=== PATIENT | female | born 1990 | race Caucasian/White ===

== ENCOUNTER 2019-03-22 05:54 | Inpatient (IN) ==
[2019-03-22] MEDS: LACTATED RINGERS 1,000 ML IV SCH ×3 (06:59→23:56)
[2019-03-22] MEDS ORDERED: AMPICILLIN INJ 2,000 MG in SODIUM CHLORIDE 0.9% 100 ML IV SCH (07:00)
[2019-03-22 07:10] LABS: Basophils % 0.2 % (0.0-0.8); Eosinophils # 0.1 10*3/uL (0.0-0.87); Hematocrit 34.4 VOL% (35.7-47.0); Hemoglobin 10.9 GM/DL (12.0-16.0); Immature Granulocytes % 0.4 %; Immature Granulocytes Absolute 0.05 #; Lymphocytes # 3.2 10*3/uL (1.4-4.0); Lymphocytes % 26.4 % (21.3-54.2); Mean Corpuscular HGB Conc 31.7 GM/DL (32-36); Mean Corpuscular Volume 84.9 FL (87-102); Mean Platelet Volume 12.6 FL (9.6-12.0); Monocytes % 3.6 % (1.7-12.7); Neutrophils % 68.4 % (38.7-73.9); Platelet Count 257 T/CUMM (130-400); Red Blood Count 4.05 MC/CUMM (3.8-5.5); Red Cell Distribution Width 14.3 % (9.3-17.3); White Blood Count 12.2 T/CUMM (4-12)
[2019-03-22 07:28] LABS: Alanine Aminotransferase 16 U/L (13-56); Albumin 2.5 G/DL (3.4-5.0); Alkaline Phosphatase 130 U/L (45-117); Aspartate Amino Transferase 18 U/L (0-37); Bilirubin,Total < 0.39 MG/DL (0.2-1.0); Blood Urea Nitrogen 13 MG/DL (7-18); Calcium 9.5 MG/DL (8.5-10.1); Glucose 121 MG/DL (74-106); Osmolality,Calculated 273.8 MOS/KG (273-304); Total Protein 6.8 G/DL (6.4-8.3)
[2019-03-22] MEDS ORDERED: OXYTOCIN/LR 20 UNIT/1,000 ML BAG IV SCH (07:30)
[2019-03-22] MEDS: OXYTOCIN/LR 20 UNIT/1,000 ML BAG IV SCH (07:34)
[2019-03-22] MEDS ORDERED: AMPICILLIN INJ 2,000 MG in SODIUM CHLORIDE 0.9% 100 ML IV ONE (08:41)
[2019-03-22] MEDS: ONDANSETRON 4 MG/2 ML VIAL IV PRN ×2 (12:13→16:14)
[2019-03-22] MEDS: BUTORPHANOL 2 MG/ML VIAL IV PRN ×3 (12:15→21:05)
[2019-03-22] MEDS: AMPICILLIN INJ 1,000 MG in SODIUM CHLORIDE 0.9% 100 ML IV SCH ×3 (12:29→20:49)
[2019-03-22] MEDS ORDERED: LACTATED RINGERS 1,000 ML IV ONE (17:41)
[2019-03-22] MEDS ORDERED: CITRIC ACID/SODIUM CITRATE 30 ML UDCUP PO ONE (17:41)
[2019-03-22] MEDS ORDERED: FAMOTIDINE 20 MG/2 ML VIAL IV ONE (17:41)
[2019-03-22] MEDS ORDERED: diphenhydrAMINE 50 MG/1 ML VIAL IV PRN ×2 (17:41)
[2019-03-22] MEDS ORDERED: NALOXONE 0.4 MG/ML VIAL IV PRN (17:41)
[2019-03-22] MEDS ORDERED: ePHEDrine 50 MG/ML AMP IV PRN (17:41)
[2019-03-22] MEDS ORDERED: PROMETHAZINE 25 MG/1 ML VIAL IM ONE (17:41)
[2019-03-22] MEDS ORDERED: fentaNYL 2 MCG/ROPIV 0.2% EPID 100 ML EPIDURAL SCH (18:00)
[2019-03-22] MEDS ORDERED: LACTATED RINGERS 1,000 ML IV SCH ×2 (18:00)
[2019-03-23] MEDS: ONDANSETRON 4 MG/2 ML VIAL IV PRN ×3 (00:17→18:07)
[2019-03-23] MEDS: AMPICILLIN INJ 1,000 MG in SODIUM CHLORIDE 0.9% 100 ML IV SCH ×2 (00:17→04:30)
[2019-03-23] MEDS: BUTORPHANOL 2 MG/ML VIAL IV PRN ×2 (00:18→04:10)
[2019-03-23] MEDS ORDERED: FAMOTIDINE 20 MG/2 ML VIAL IV ONE (06:16)
[2019-03-23] MEDS ORDERED: CITRIC ACID/SODIUM CITRATE 30 ML UDCUP PO ONE (06:16)
[2019-03-23] MEDS ORDERED: fentaNYL 100 MCG/2 ML VIAL ONE (06:51)
[2019-03-23] MEDS ORDERED: MORPHINE 10 MG/10 ML VIAL ONE (06:51)
[2019-03-23] MEDS ORDERED: BUPIVACAINE SPINAL 0.75% 2 ML AMP SPINAL ONE (06:52)
[2019-03-23] MEDS ORDERED: EPINEPHrine 1 MG/ML VIAL ONE (06:57)
[2019-03-23] MEDS ORDERED: BUPIVACAINE 0.5% 50 ML VIAL ONE (06:57)
[2019-03-23] MEDS ORDERED: ceFAZolin 3,000 MG in SYRINGE 1 EACH IV ONE (07:00)
[2019-03-23] MEDS ORDERED: miSOPROStol 200 MCG TABLET ONE (07:05)
[2019-03-23] MEDS ORDERED: CARBOPROST TROMETHAMINE 250 MCG/ML AMP IM ONE ×2 (07:05→08:00)
[2019-03-23] MEDS ORDERED: METHYLERGONOVINE 0.2 MG/1 ML AMP ONE ×2 (07:05→08:05)
[2019-03-23] MEDS ORDERED: TRANEXAMIC ACID 1,000 MG/10 ML VIAL ONE (07:07)
[2019-03-23] MEDS ORDERED: OXYTOCIN/LR 20 UNIT/1,000 ML BAG IV ONE (08:33)
[2019-03-23] MEDS ORDERED: ONDANSETRON 4 MG/2 ML VIAL IV PRN ×2 (08:33→21:30)
[2019-03-23] MEDS ORDERED: ACETAMINOPHEN 325 MG TABLET PO PRN (08:33)
[2019-03-23] MEDS ORDERED: RHO(D) IMMUNE GLOBULIN 300 MCG SYRINGE IM ONE (08:33)
[2019-03-23] MEDS ORDERED: ceFAZolin 1,000 MG in SYRINGE 1 EACH IV SCH (09:00)
[2019-03-23] MEDS ORDERED: LACTATED RINGERS 1,000 ML IV SCH (09:00)
[2019-03-23 09:30] LABS: Apearance,Urine CLEAR (Clear); Bacteria,Urine Occasional /HPF (Few); Bilirubin,Urine Negative (Negative); Blood, Urine Small mg/dL (Negative); Glucose,Urine (UA) Negative (Negative); Ketones,Urine 20 mg/dL (Negative); Nitrite,Urine Negative (Negative); Protein,Urine Negative; RBC,Urine <1 /HPF (0-4); Squamous Epithelial Cell,Urine Occasional /HPF (0-10); Urine Color Yellow (Yellow); Urine Specific Gravity 1.008 (1.001-1.035); Urine Urobilinogen < 2.0 EU/DL (0.2-1.0); WBC,Urine 1 /HPF (0-6)
[2019-03-23] MEDS ORDERED: HYDROmorphone 2 MG/1 ML VIAL IV PRN (10:36)
[2019-03-23] MEDS ORDERED: hydrOXYzine HCL 25 MG/1 ML VIAL IM PRN (10:36)
[2019-03-23] MEDS: OXYTOCIN/LR 20 UNIT/1,000 ML BAG IV SCH (10:42)
[2019-03-23] MEDS ORDERED: SODIUM CHLORIDE 0.9% 100 ML IV ONE (10:52)
[2019-03-23] MEDS: MEPERIDINE 50 MG/1 ML VIAL IV PRN ×3 (12:59→22:25)
[2019-03-23] MEDS: DOCUSATE SODIUM 100 MG CAPSULE PO SCH ×2 (14:20→20:15)
[2019-03-23] MEDS: MULTIVITAMIN (PRENATAL) TABLET PO SCH (14:20)
[2019-03-23] MEDS ORDERED: SODIUM CHLORIDE 0.9% 50 ML IV ONE (15:46)
[2019-03-23] MEDS: ceFAZolin 1,000 MG in SYRINGE 1 EACH IV SCH (15:52)
[2019-03-23] MEDS: LABETALOL 200 MG TABLET PO SCH (20:09)
[2019-03-23 21:56] LABS: Basophils % 0.3 % (0.0-0.8); Eosinophils % 0.3 % (0.00-10.9); Hematocrit 31.9 VOL% (35.7-47.0); Immature Granulocytes % 0.7 %; Immature Granulocytes Absolute 0.08 #; Lymphocytes # 1.8 10*3/uL (1.4-4.0); Lymphocytes % 16.4 % (21.3-54.2); Mean Corpuscular HGB Conc 31.3 GM/DL (32-36); Mean Corpuscular Volume 84.4 FL (87-102); Mean Platelet Volume 12.9 FL (9.6-12.0); Monocytes % 3.7 % (1.7-12.7); Neutrophils % 78.6 % (38.7-73.9); Platelet Count 214 T/CUMM (130-400); Red Blood Count 3.78 MC/CUMM (3.8-5.5); Red Cell Distribution Width 14.4 % (9.3-17.3); White Blood Count 11.2 T/CUMM (4-12)
[2019-03-24] MEDS: ceFAZolin 1,000 MG in SYRINGE 1 EACH IV SCH (01:25)
[2019-03-24] MEDS: IBUPROFEN 800 MG TABLET PO PRN ×3 (02:07→20:49)
[2019-03-24 06:00] LABS: Basophils % 0.2 % (0.0-0.8); Eosinophils # 0.1 10*3/uL (0.0-0.87); Eosinophils % 0.6 % (0.00-10.9); Hematocrit 29.1 VOL% (35.7-47.0); Immature Granulocytes % 0.4 %; Immature Granulocytes Absolute 0.04 #; Lymphocytes # 2.5 10*3/uL (1.4-4.0); Lymphocytes % 25.5 % (21.3-54.2); Mean Corpuscular HGB Conc 30.9 GM/DL (32-36); Mean Corpuscular Volume 85.6 FL (87-102); Mean Platelet Volume 12.3 FL (9.6-12.0); Monocytes % 4.5 % (1.7-12.7); Neutrophils % 68.8 % (38.7-73.9); Platelet Count 201 T/CUMM (130-400); Red Cell Distribution Width 14.5 % (9.3-17.3); White Blood Count 9.6 T/CUMM (4-12)
[2019-03-24] MEDS: LEVOTHYROXINE 50 MCG TABLET PO SCH (06:19)
[2019-03-24] MEDS ORDERED: SERTRALINE 50 MG TABLET PO SCH (09:00)
[2019-03-24] MEDS: MULTIVITAMIN (PRENATAL) TABLET PO SCH (09:41)
[2019-03-24] MEDS: LABETALOL 200 MG TABLET PO SCH ×2 (09:41→21:37)
[2019-03-24] MEDS: SERTRALINE 50 MG TABLET PO SCH (09:42)
[2019-03-24] MEDS: DOCUSATE SODIUM 100 MG CAPSULE PO SCH ×2 (09:42→21:37)
[2019-03-25] MEDS: LEVOTHYROXINE 50 MCG TABLET PO SCH (07:59)
[2019-03-25] MEDS: SERTRALINE 50 MG TABLET PO SCH (08:00)
[2019-03-25] MEDS: MULTIVITAMIN (PRENATAL) TABLET PO SCH (08:00)
[2019-03-25] MEDS: DOCUSATE SODIUM 100 MG CAPSULE PO SCH ×2 (08:00→21:14)
[2019-03-25] MEDS: LABETALOL 200 MG TABLET PO SCH ×2 (08:00→21:15)
[2019-03-25] MEDS: IBUPROFEN 800 MG TABLET PO PRN (11:50)
[2019-03-25] MEDS: SIMETHICONE CHEW 80 MG TABLET PO PRN (16:26)
[2019-03-25] MEDS: MAGNESIUM HYDROXIDE SUSP 30 ML UDCUP PO PRN (21:14)
[2019-03-26] MEDS: IBUPROFEN 800 MG TABLET PO PRN ×2 (04:20→16:24)
[2019-03-26] MEDS: LEVOTHYROXINE 50 MCG TABLET PO SCH (06:15)
[2019-03-26] MEDS: MAGNESIUM HYDROXIDE SUSP 30 ML UDCUP PO PRN (08:56)
[2019-03-26] MEDS: DOCUSATE SODIUM 100 MG CAPSULE PO SCH (08:56)
[2019-03-26] MEDS: MULTIVITAMIN (PRENATAL) TABLET PO SCH (08:56)
[2019-03-26] MEDS: SIMETHICONE CHEW 80 MG TABLET PO PRN (08:56)
[2019-03-26] MEDS: LABETALOL 200 MG TABLET PO SCH (08:56)
[2019-03-26] MEDS: SERTRALINE 50 MG TABLET PO SCH (08:58)
[2019-03-26 16:23] VITALS: BP 140/73
== END 2019-03-26 19:25 | disposition home or self-care (01) | DRG 540 ==
LOC: N.LDOUT 05:54 → N.LD 05:55 → N.OB 03-23 12:52
PROVIDERS: ADMIT Obstetrics & Gynecology; ATTEND Obstetrics & Gynecology
PROC: LDCSECT (ICD-10-PCS; 2019-03-23 07:30)